=== PATIENT | male | born 1960 | race Two or more races ===

== ENCOUNTER → 2017-09-04 | Outpatient (CLI) | payer OTHER ==
[~2017-09-04] VITALS: Ht 152.4 cm; Wt 76.2 kg
[~2017-09-04] MED LIST: ALLEGRA ALLERG180 MG PO; GILTUSS TR TAB1 EACH PO; INTESTINEX680 MG PO; KETO10TA2 PO; ORPH100T PO; ZITHROMAX500 MG PO; ZOVIRAX400 MG PO; ZOVIRAX5 GM TP; ZYRTEC10 MG PO
== END | disposition home or self-care (01) ==
LOC: PPHC 08:19
DX: B00.89 Other herpesviral infection (principal)

== ENCOUNTER → 2017-10-25 | Outpatient (CLI) | payer OTHER ==
[~2017-10-25] VITALS: Ht 152.4 cm; Wt 79.4 kg
== END | disposition home or self-care (01) ==
LOC: PPHC 09:22
DX: J06.9 Acute upper respiratory infection, unspecified (principal)

== ENCOUNTER → 2017-10-30 | Outpatient (CLI) | payer OTHER | END | disposition home or self-care (01) | LOC: PPHC 09:26 | DX: J00 Acute nasopharyngitis [common cold] (principal) ==

== ENCOUNTER → 2017-11-01 | Outpatient (CLI) | payer OTHER | END | disposition home or self-care (01) | LOC: PPHC 07:52 | DX: J06.9 Acute upper respiratory infection, unspecified (principal) ==

== ENCOUNTER 2019-05-16 08:37 | Outpatient (CLI) | payer OTHER | END 2019-05-16 09:09 | disposition home or self-care (01) | LOC: LAB 08:37 | DX: J11.1 Influenza due to unidentified influenza virus with other respiratory manifestations (principal) ==

== ENCOUNTER → 2020-09-16 | Emergency (ER) | payer OTHER ==
[~2020-09-16] VITALS: Ht 172.7 cm; Wt 77.1 kg
== END | disposition home or self-care (01) ==
LOC: ER 21:53
DX: S00.83XA Contusion of other part of head, initial encounter (principal); W22.8XXA Striking against or struck by other objects, initial encounter; Y93.89 Activity, other specified; Y92.69 Other specified industrial and construction area as the place of occurrence of the external cause; Y99.8 Other external cause status

== ENCOUNTER 2020-10-30 10:02 | Emergency (ER) | payer OTHER ==
[~2020-10-30] VITALS: Ht 172.7 cm; Wt 77.1 kg
[2020-10-30] MEDS ORDERED: PRILOSEC OTC20 MG (10:16)
[2020-10-30] MEDS ORDERED: PEPCID AC20 MG (10:16)
[2020-10-30] MEDS ORDERED: MECLIZINE HCL25 MG PO (14:32)
== END 2020-10-30 14:39 | disposition home or self-care (01) ==
LOC: ER 10:02
DX: R42 Dizziness and giddiness (principal); R53.81 Other malaise; Z20.822 Contact with and (suspected) exposure to COVID-19

== ENCOUNTER 2021-01-07 05:50 | Day surgery (SDC) | payer OTHER ==
[~2021-01-07 05:50] MED LIST changes: +MECLIZINE HCL25 MG PO; +PEPCID AC20 MG; +PRILOSEC OTC20 MG
== END 2021-01-07 11:50 | disposition home or self-care (01) ==
LOC: AMB-ENDOS 05:50
PROVIDERS: ATTEND Surgery
DX: K31.7 Polyp of stomach and duodenum (principal); K44.9 Diaphragmatic hernia without obstruction or gangrene; Z20.822 Contact with and (suspected) exposure to COVID-19

== ENCOUNTER 2021-01-18 07:00 | Inpatient (IN) | payer OTHER ==
[~2021-01-18] VITALS: Ht 172.7 cm; Wt 72.6 kg
[2021-01-21] MEDS ORDERED: NEXIUM 24HR20 MG PO (18:02)
[2021-01-21] MEDS ORDERED: CARAFATE1 GM/10 ML PO (18:02)
[2021-01-21] MEDS ORDERED: PERCOCET 5-3251 EACH PO (18:02)
[2021-01-21] MEDS ORDERED: SIMETHICONE80 MG PO (18:02)
== END 2021-01-21 22:13 | disposition home or self-care (01) | DRG 328 ==
LOC: O/R 01-20 05:37 → SURG 01-20 07:00
PROVIDERS: ADMIT Surgery; ATTEND Surgery
PROC: 0WQF4ZZ Repair Abdominal Wall, Percutaneous Endoscopic Approach (ICD-10-PCS; 2021-01-20)
PROC: 0DB64ZZ Excision of Stomach, Percutaneous Endoscopic Approach (ICD-10-PCS; principal; 2021-01-20 07:00)
PROC: 0BQT4ZZ Repair Diaphragm, Percutaneous Endoscopic Approach (ICD-10-PCS; 2021-01-20 07:00)
DX: C49.A2 Gastrointestinal stromal tumor of stomach (principal); K44.9 Diaphragmatic hernia without obstruction or gangrene; G89.18 Other acute postprocedural pain; K42.9 Umbilical hernia without obstruction or gangrene

== ENCOUNTER 2021-03-25 08:08 | Outpatient (CLI) | payer OTHER ==
[~2021-03-25 08:08] MED LIST changes: +CARAFATE1 GM/10 ML PO; +NEXIUM 24HR20 MG PO; +PERCOCET 5-3251 EACH PO; +SIMETHICONE80 MG PO
== END 2021-03-25 08:09 | disposition home or self-care (01) ==
LOC: NUCLEAR 08:08
PROVIDERS: ATTEND Internal Medicine Hematology & Oncology
DX: C49.A2 Gastrointestinal stromal tumor of stomach (principal)
CPT/HCPCS: 78815; A9552

== ENCOUNTER 2021-04-03 07:12 | Outpatient (CLI) | payer OTHER | END 2021-04-03 07:20 | disposition home or self-care (01) | LOC: LAB 07:12 | PROVIDERS: ATTEND Internal Medicine Hematology & Oncology | DX: E03.8 Other specified hypothyroidism (principal); E11.9 Type 2 diabetes mellitus without complications; E55.9 Vitamin D deficiency, unspecified; E78.00 Pure hypercholesterolemia, unspecified; I10 Essential (primary) hypertension; R31.29 Other microscopic hematuria; M06.8A Other specified rheumatoid arthritis, other specified site; D70.8 Other neutropenia ==

== ENCOUNTER 2021-11-17 07:44 | Outpatient (CLI) | payer OTHER | END 2021-11-17 07:54 | disposition home or self-care (01) | LOC: SONOGRAMA 07:44 | PROVIDERS: ATTEND Internal Medicine Hematology & Oncology | DX: K76.0 Fatty (change of) liver, not elsewhere classified (principal) ==

== ENCOUNTER → 2022-02-02 | Emergency (ER) | payer OTHER ==
[~2022-02-02] VITALS: Ht 172.7 cm; Wt 77.1 kg
[~2022-02-02] MED LIST changes: +IBU600 MG PO; +PROMETH-CODEIN 65 ML PO
== END | disposition home or self-care (01) ==
LOC: ER 08:08
DX: J06.9 Acute upper respiratory infection, unspecified (principal); J02.9 Acute pharyngitis, unspecified; Z20.822 Contact with and (suspected) exposure to COVID-19

== ENCOUNTER 2022-04-29 12:15 | Outpatient (CLI) | payer OTHER | END 2022-04-29 12:30 | disposition home or self-care (01) | LOC: SONOGRAMA 12:15 | PROVIDERS: ATTEND Internal Medicine Hematology & Oncology | DX: E03.9 Hypothyroidism, unspecified (principal); E04.1 Nontoxic single thyroid nodule ==

== ENCOUNTER 2022-06-28 07:09 | Emergency (ER) | payer OTHER ==
[~2022-06-28] VITALS: Ht 172.7 cm; Wt 77.1 kg
[2022-06-28] MEDS ORDERED: ATORVASTATIN CA10 MG (07:27)
[2022-06-28] MEDS ORDERED: LEVO-T25 MCG (07:27)
[2022-06-28] MEDS ORDERED: MUCINEX DM ER1 EAC1 PO (11:47)
[2022-06-28] MEDS ORDERED: ZITHROMAX500 MG PO (11:47)
[2022-06-28] MEDS ORDERED: PROMETH-CODEIN 65 ML PO (11:47)
[2022-06-28] MEDS ORDERED: IBU600 MG PO (11:47)
== END 2022-06-28 11:49 ==
LOC: ER 07:09
DX: J06.9 Acute upper respiratory infection, unspecified (principal); Z20.822 Contact with and (suspected) exposure to COVID-19

== ENCOUNTER 2022-12-28 11:13 | Emergency (ER) | payer OTHER ==
[~2022-12-28] VITALS: Ht 162.6 cm; Wt 68.0 kg
[~2022-12-28 11:13] MED LIST changes: +ATORVASTATIN CA10 MG; +LEVO-T25 MCG; +MUCINEX DM ER1 EAC1 PO
[2022-12-28] MEDS ORDERED: BENZONATATE200 M1 PO (14:41)
[2022-12-28] MEDS ORDERED: ZITHROMAX500 MG PO (14:41)
== END 2022-12-28 14:44 | disposition home or self-care (01) ==
LOC: ER 11:13
DX: J06.9 Acute upper respiratory infection, unspecified (principal); Z20.822 Contact with and (suspected) exposure to COVID-19; E03.8 Other specified hypothyroidism

== ENCOUNTER 2023-08-09 13:06 | Emergency (ER) | payer OTHER ==
[~2023-08-09] VITALS: Ht 172.7 cm; Wt 76.2 kg
[~2023-08-09 13:06] MED LIST changes: +BENZONATATE200 M1 PO
[2023-08-09 16:46] LABS: HEMATOCRIT 47.7 % (39.0-48.0); HEMOGLOBIN 16.7 g/dL (13-16.00); MEAN CELL VOLUME 93.4 fL (80.0-100.00); MEAN CORPUSCULAR HEMOGLOBIN 32.7 pg (27.00-32.0); PLATELET COUNT 165 K/uL (150-450); RED CELL DISTRIBUTION WIDTH 13.7 % (11.5-14.5)
[2023-08-09 16:47] LABS: PH,URINE 5.5 (5.0-8.0); URINE APPEARANCE Clear; URINE BILIRRUBIN Negative (NEGATIVE); URINE BLOOD Moderate; URINE COLOR Yellow; URINE GLUCOSE Negative (NEGATIVE); URINE LEUKOCYTE Negative; URINE NITRATE Negative; URINE PROTEIN 30 (NEGATIVE)
[2023-08-09 16:51] LABS: URINE BACTERIA 12.5 uL (0.0-1933); URINE EPITHELIAL CELLS 3.2 uL (0.0-38.8); URINE RBC 41.8 uL (0.0-20.8); URINE WBC 2.6 uL (0.0-23.2)
[2023-08-09 17:06] LABS: CALCIUM 8.8 mg/dL (8.5-10.1); CREATININE SERUM 0.96 mg/dL (0.70-1.30); GFR 79.63; POTASSIUM 3.81 mEq/L (3.5-5.1)
[2023-08-09] MEDS ORDERED: PEPCID AC20 MG PO (17:57)
[2023-08-09] MEDS ORDERED: INTESTINEX680 M1 PO (17:57)
[2023-08-09] MEDS ORDERED: OSEL75CA PO ×3 (17:57→18:03)
== END 2023-08-09 18:46 | disposition home or self-care (01) ==
LOC: ER 13:07
PROVIDERS: Nurse Practitioner Family
DX: J10.1 Influenza due to other identified influenza virus with other respiratory manifestations (principal); R19.7 Diarrhea, unspecified; E03.8 Other specified hypothyroidism